=== PATIENT | female | born 1990 | race Caucasian/White ===

== ENCOUNTER → 2016-08-17 | Outpatient (CLI) | payer BC ==
[2016-08-17 14:50] VITALS: BP 107/69; PULSE 84; TEMP 37; O2SAT 99
--- NOTE | 2016-08-17 16:46 | Radiation Oncology Follow-Up ---
Radiation Oncology Follow-Up Date of Visit Aug 17, 2016. Reason For Visit Post radiation follow-up Radiation Completion Date Ext. 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 Status post completion of HDR treatment with tandem and ovoid at [facility]. Received 5 high-dose treatments given from 03/17/2014 to 2014. Last Edited By: Carin Sharpe on Oct 09, 2014 09:06 History of Present Illness Ms. Le is a 26-year-old female who presented with post coital bleeding for about 1 year. This would occur following each active intercourse and was getting more abundant recently along with a complaint of mild pain.. The bleeding was initially light and intermittent over the past couple of months she has noticed a worsening in her bleeding. Patient also noted a vaginal discharge that was without an order. Patient is a 0 para 0 premenopausal with her last prior Pap smear in February 2012 which was negative. Her periods have been regular. A pelvic examination revealed a large friable cervix. A Pap smear was performed on 11/11/2013. This was positive for an adenocarcinoma with increased mitosis and apoptosis. Immunostains showed the atypical cells are positive for P16 with an MIB-1 index of approximately 80%. Accession #[id number]. She was ultimately seen by Dr. Tita Land on 11/17/2013. Her examination identified normal external genitalia with no abnormal vulvar or vaginal lesions. The cervix however was large measuring 5 cm exophytic, friable with a fungating lesion extending from 12:00 to 5 o'clock position along the left rim of the cervix. The uterus was normal size shape and consistency. No adnexal masses were identified. No extension onto the parametrium was appreciated. The patient underwent a cervical biopsy which revealed an endocervical adenocarcinoma grade 2. No lymphovascular invasion was identified. Clinically it was a stage I B2. Accession #: [id number]. Dr. Land spoke to the patient about treatment options. She felt the patient would best be served by combination of chemoradiation following ovarian transposition and egg preservation. She ordered a PET CT scan as a staging procedure. This was performed on 11/26/2013. This showed a region of increased FDG activity at the level of the cervix with a maximum SUV of 7.6. There is mildly increased FDG activity in the right adnexa likely representing physiologic metabolic ovarian activity. There is no metabolically active abdominal or pelvic lymphadenopathy. Dr. Tita Land performed an bilateral ovarian transposition and egg harvest. The patient is recovering well from this procedure. She is seeing Dr. Margarito Quesada for her systemic chemotherapy. She completed combined radiation and chemotherapy. Radiation completed 2014 with external beam therapy IMRT received 5040 cGy. She then had 5 HDR treatments with tandem and ovoids at [facility]. She was treated from 03/17/2014 to 03/30/2014. Interim History The patient has been followed most recently by Dr. Horn and Dr. Mirtha Land in [facility]. She has had rechecked visits every 6 months. Pap smears have been normal. She has noticed some vaginal tightness and drying. There will be spotting after intercourse. There is associated discomfort while having intercourse. Bowel movements are regular but she does have the passage of mucus at times. There is no rectal bleeding. Her periods are irregular. At that time she'll have 2 periods in one month. She had reviewed this with her coil cleaner. She was placed on control pills. This did regulate her periods but she did not care for the side effects of the pills. She is also discussed the incus that passes from the rectum with radiation oncology in [facility]. This was not felt to be a concern. She is not having any difficulty with abdominal or pelvic pain. Allergies Coded Allergies: Hydrocodone (Unverified Allergy, Intermediate, hives, 12/15/15) Home Medications No Active Prescriptions or Reported Meds Review of Systems Gastrointestinal: Symptoms: WNL GI Comments: 2-3 BMs/day;Looser, but formed BMs;No fiber supplements; Oral: Symptoms: No Problems Respiratory: Symptoms: WNL Urinary: Symptoms: WNL Skin: Symptoms: No Problems Physical Exam Vital Signs Date Time Temp Pulse Resp B/P (MAP) Pulse Ox O2 Delivery O2 Flow Rate FiO2 08/17/16 14:50 37.0 84 12 107/69 99 Fatigue: None General Appearance: no apparent distress Eyes: normal inspection, EOMI ENT: normal ENT inspection, hearing grossly normal Neck: supple, no adenopathy Respiratory/Chest: lungs clear, no respiratory distress, no accessory muscle use Cardiovascular: regular rate, rhythm, no gallop, no murmur Abdomen: non tender, soft Genitourinary - Female: Normal external genitalia. She does have foreshortening of the vagina. There is telangiectasia and post radiation changes seen of the cervix. There is no vaginal discharge or bleeding. There are no visible lesions on the cervix. There are no palpable lesions on bimanual examination. There is no pain or tenderness on bimanual examination. Anal / Rectum: Normal sphincter tone. No rectal masses no rectal bleeding. Extremities: no pedal edema Neurologic/Psychiatric: no motor/sensory deficits, alert, normal mood/affect Skin: warm/dry Assessment & Plan Plan: Continue regular follow-up with Dr. Land and Dr. Horn. I've asked her to review the irregular periods with the coil cleaner. We discussed that the mucus could be a later side effects from treatment. She should notify us if she has any rectal bleeding. We discussed the dyspareunia. She would benefit from a lubricant during intercourse. There also discussed different positioning to allow for less discomfort during intercourse. She'll be seeing Dr. Land in September and having a recheck Pap smear. We asked her to return to our office in 1 year. We discussed having colonoscopies at an earlier age due to her exposure to radiation. She may call if she has any questions or concerns in the interim. Total Time In Follow-Up I spent 20 minutes speaking to the patient and performing examination. I spent 15 minutes reviewing information in completing this note. Copy To Mirtha Land D.O.; Sergo Orozco M.D.(KEYANA) Problem Qualifiers (1) Cervical cancer: Malignant neoplasm of cervix location: endocervix Qualified Codes: C53.0 - Malignant neoplasm of endocervix
== END | disposition home or self-care (01) ==
LOC: C.ONC 14:42
PROVIDERS: ATTEND Physician Assistant Medical
DX: Z08 Encounter for follow-up examination after completed treatment for malignant neoplasm (principal); Z92.3 Personal history of irradiation; Z85.41 Personal history of malignant neoplasm of cervix uteri